=== PATIENT | female | born 1935 | race Caucasian/White ===

== ENCOUNTER 2016-07-24 13:11 | Inpatient (IN) | payer MEDICARE ==
[~2016-07-24] VITALS: Ht 167.6 cm; Wt 62.2 kg
[2016-07-24] VITALS (11 sets, daily range): BP systolic 152–186; BP diastolic 49–83
[~2016-07-24 13:11] MED LIST: AMLO1TAB14 PO; CELE200C PO; LEVO750T26 PO; OXYC-302 PO; POLY17PO5 PO
[2016-07-24] MEDS ORDERED: SODIUM CHLORIDE FLUSH 10ML SYR IVF ONE (14:00)
[2016-07-24] MEDS ORDERED: NICOTINE 14MG/24 HR PATCH.TD24 TD ONE (14:00)
[2016-07-24] MEDS ORDERED: VALS320T2 PO (14:12)
[2016-07-24] MEDS ORDERED: AMLO2.5T PO (14:12)
[2016-07-24] MEDS ORDERED: OMEP20TA62 PO (14:12)
[2016-07-24 14:19] LABS: ASPARTATE AMINO TRANSFERASE 13 U/L (15-37); BLOOD UREA NITROGEN 16 mg/dL (7-18); HEMOGLOBIN 5.8 g/dL (11.7-16.4)
[2016-07-24 14:47] LABS: DIFF TOTAL CELLS COUNTED 100 CELL DIFF
[2016-07-24 14:51] LABS: ANISOCYTOSIS 2+; HYPOCHROMIA 2+; VERIFY COUNTS? YES
[2016-07-24 14:52] LABS: LARGE PLATELETS 1+; POLYCHROMASIA 1+; TARGET CELLS 1+
[2016-07-24] MEDS ORDERED: NICOTINE 14MG/24 HR PATCH.TD24 ONE (15:05)
[2016-07-24] MEDS ORDERED: ACETAMINOPHEN 325 MG TABLET PO PRN (15:30)
[2016-07-24 15:38] LABS: TOTAL IRON BINDING CAPACITY 337 mcg/dL (250-450)
[2016-07-24] MEDS ORDERED: LABETALOL 5MG/ML, 20ML IVPush ONE (22:00)
[2016-07-24 22:26] LABS: PATH.CAST-FLAG NOT PRESENT; SPERM-FLAG NOT PRESENT; SRC-FLAG NOT PRESENT; XTAL-FLAG NOT PRESENT; YLC-FLAG NOT PRESENT
[2016-07-25 02:05] VITALS: BP 173/78
[2016-07-25 05:38] LABS: HEMOGLOBIN 9.9 g/dL (11.7-16.4)
[2016-07-25 05:49] LABS: ASPARTATE AMINO TRANSFERASE 19 U/L (15-37); BLOOD UREA NITROGEN 15 mg/dL (7-18)
[2016-07-25 06:29] LABS: ANISOCYTOSIS 2+; HYPOCHROMIA 1+; MICROCYTOSIS 1+; TARGET CELLS 1+
[2016-07-25] MEDS ORDERED: PANTOPROZOLE 40MG TABLET PO SCH (07:30)
[2016-07-25 07:39] VITALS: BP 172/72
[2016-07-25] MEDS ORDERED: ENALAPRILAT 1.25 MG/ML, 2ML IV PRN (09:00)
[2016-07-25] MEDS ORDERED: ASCORBIC ACID 500 MG TABLET PO SCH (09:00)
[2016-07-25] MEDS ORDERED: VALSARTAN 320 MG TABLET PO SCH (09:00)
[2016-07-25] MEDS ORDERED: AMLODIPINE 2.5 MG TABLET PO ONE (09:00)
[2016-07-25] MEDS ORDERED: AMLODIPINE 2.5 MG TABLET PO SCH (09:00)
[2016-07-25] MEDS ORDERED: AMLO2.5T PO ×2 (09:55→12:16)
[2016-07-25] MEDS ORDERED: FERR325T20 PO (09:55)
[2016-07-25] MEDS ORDERED: ASCO500T6 PO (09:55)
[2016-07-25] MEDS: FERROUS SULFATE 325 MG TABLET PO SCH ×2 (10:50→12:52)
[2016-07-25 13:43] LABS: OCCBLD OBC PASS
[2016-07-25 14:34] VITALS: BP 162/72
[2016-07-26] MEDS ORDERED: AMLODIPINE 2.5 MG TABLET PO SCH (09:00)
== END 2016-07-25 16:08 | disposition home or self-care (01) | DRG 812 ==
LOC: ED 14:05 → EDIP 14:32 → 3NE 15:26 → DCLOUNGE 07-25 15:38
PROC: 30233N1 Transfusion of Nonautologous Red Blood Cells into Peripheral Vein, Percutaneous Approach (ICD-10-PCS; principal; 2016-07-24)
PROC: 0T9B70Z Drainage of Bladder with Drainage Device, Via Natural or Artificial Opening (ICD-10-PCS; 2016-07-24)
DX: D62 Acute posthemorrhagic anemia (principal); J96.10 Chronic respiratory failure, unspecified whether with hypoxia or hypercapnia; D50.9 Iron deficiency anemia, unspecified; F17.210 Nicotine dependence, cigarettes, uncomplicated; I10 Essential (primary) hypertension; J44.9 Chronic obstructive pulmonary disease, unspecified; K21.9 Gastro-esophageal reflux disease without esophagitis; Z80.1 Family history of malignant neoplasm of trachea, bronchus and lung; Z85.038 Personal history of other malignant neoplasm of large intestine; Z99.81 Dependence on supplemental oxygen; Z90.49 Acquired absence of other specified parts of digestive tract; Z88.8 Allergy status to other drugs, medicaments and biological substances
CPT/HCPCS: 36415; 80053; 81001; 82272; 82607; 82746; 83540; 83550; 85025; 85045; 85610; 86850; 86900; 86923; 93005; 99285; P9016

== ENCOUNTER 2017-03-08 13:10 | Inpatient (IN) | payer MEDICARE ==
[~2017-03-08] VITALS: Ht 167.6 cm; Wt 50.5 kg
[~2017-03-08 13:10] MED LIST changes: +AMLO2.5T PO; +ASCO500T6 PO; +CEFD300C37 PO; +DOXY100T PO; +FERR325T18 PO; +OMEP20TA62 PO; +VALS320T2 PO
[2017-03-08] MEDS ORDERED: SODIUM CHLORIDE 0.9% 1,000 ML IV ONE ×2 (13:16→16:30)
[2017-03-08] MEDS ORDERED: PLEASE ENTER HEIGHT AND WEIGHT MC SCH (13:30)
[2017-03-08] MEDS ORDERED: SODIUM CHLORIDE 0.9% 1,000ML IVBOLUS ONE ×2 (13:30→16:30)
[2017-03-08] MEDS ORDERED: SODIUM CHLORIDE FLUSH 10ML SYR IVF ONE (13:30)
[2017-03-08 13:42] LABS: HEMATOCRIT 35.1 % (34.6-47.8); HEMOGLOBIN 11.3 g/dL (11.7-16.4)
[2017-03-08 13:54] LABS: ASPARTATE AMINO TRANSFERASE 12 U/L (15-37); BLOOD UREA NITROGEN 19 mg/dL (7-18)
[2017-03-08 13:59] LABS: IS PT STATUS REG ER OR PRE ER? YES
[2017-03-08 14:24] LABS: DIFF TOTAL CELLS COUNTED 100 CELL DIFF
[2017-03-08 14:29] LABS: ANISOCYTOSIS 1+; VERIFY COUNTS? YES
[2017-03-08] MEDS ORDERED: METRONIDAZOLE PMX 500MG/100ML 100 ML ONE (16:15)
[2017-03-08] MEDS ORDERED: METRONIDAZOLE PMX 500MG/100ML 100 ML IV ONE (16:30)
[2017-03-08] MEDS ORDERED: NS + 20MEQ KCL 1,000 ML IV SCH (17:05)
[2017-03-08] MEDS ORDERED: ACETAMINOPHEN 325 MG TABLET PO PRN (17:30)
[2017-03-08] MEDS ORDERED: POLYETHYLENE GLYCOL 17 GM PACKET PO PRN (17:30)
[2017-03-08] MEDS ORDERED: DOCUSATE 100 MG CAPSULE PO PRN (17:30)
[2017-03-08] MEDS ORDERED: morphine SULFATE 10 MG/ML, 1ML IVPush PRN (17:30)
[2017-03-08] MEDS ORDERED: BISACODYL 10 MG SUPP PR PRN (17:30)
[2017-03-08] MEDS ORDERED: ONDANSETRON 2MG/ML, 2ML IVPush PRN (17:30)
[2017-03-08] MEDS ORDERED: HYDROcodone/APAP 5/325 TABLET PO PRN (17:30)
[2017-03-08] MEDS ORDERED: LABETALOL 5MG/ML, 20ML IVPush PRN (17:30)
[2017-03-08 20:17] VITALS: BP 125/62
[2017-03-08] MEDS: GUAIFENESIN ER 600 MG TABLET PO SCH (23:42)
[2017-03-08] MEDS: metroNIDAZOLE 500 MG TABLET PO SCH (23:42)
[2017-03-09 01:12] VITALS: BP 111/61
[2017-03-09 05:36] LABS: HEMATOCRIT 32.6 % (34.6-47.8); HEMOGLOBIN 10.5 g/dL (11.7-16.4); WHITE BLOOD COUNT 24.1 x10^3/uL (3.4-10)
[2017-03-09 05:47] LABS: BLOOD UREA NITROGEN 19 mg/dL (7-18)
[2017-03-09 06:12] LABS: DIFF TOTAL CELLS COUNTED 100 CELL DIFF
[2017-03-09 06:14] LABS: VERIFY COUNTS? YES
[2017-03-09 06:15] LABS: ANISOCYTOSIS 1+
[2017-03-09] MEDS ORDERED: DOXYCYCLINE 100 MG in DEXTROSE 5% 250 ML IV SCH (07:30)
[2017-03-09] MEDS: CEFTRIAXONE PMX 1GM/50ML 50 ML IV SCH (08:44)
[2017-03-09] MEDS: metroNIDAZOLE 500 MG TABLET PO SCH ×2 (08:45→16:28)
[2017-03-09] MEDS: FERROUS SULFATE 325 MG TABLET PO SCH ×3 (08:45→16:28)
[2017-03-09] MEDS: ENOXAPARIN 40 MG/0.4 ML SQ SCH (08:45)
[2017-03-09] MEDS: AMLODIPINE 2.5 MG TABLET PO SCH (08:46)
[2017-03-09] MEDS: VALSARTAN 320 MG TABLET PO SCH (08:46)
[2017-03-09] MEDS: GUAIFENESIN ER 600 MG TABLET PO SCH ×2 (08:46→21:08)
[2017-03-09] MEDS: ASCORBIC ACID 500 MG TABLET PO SCH (08:46)
[2017-03-09 08:57] VITALS: BP 124/69
[2017-03-09 16:06] VITALS: BP 155/64
[2017-03-09] MEDS: DOXYCYCLINE 100MG TABLET PO SCH (21:08)
[2017-03-10] MEDS: metroNIDAZOLE 500 MG TABLET PO SCH ×3 (00:25→16:29)
[2017-03-10 06:11] LABS: HEMOGLOBIN 10.5 g/dL (11.7-16.4); WHITE BLOOD COUNT 23.8 x10^3/uL (3.4-10)
[2017-03-10 06:23] LABS: BLOOD UREA NITROGEN 18 mg/dL (7-18)
[2017-03-10 07:15] VITALS: BP 145/51
[2017-03-10] MEDS: SODIUM CHLORIDE 0.9% 1,000 ML IV SCH ×2 (07:55→21:18)
[2017-03-10] MEDS: CEFTRIAXONE PMX 1GM/50ML 50 ML IV SCH (07:56)
[2017-03-10] MEDS: FERROUS SULFATE 325 MG TABLET PO SCH ×3 (08:01→16:29)
[2017-03-10] MEDS: ENOXAPARIN 40 MG/0.4 ML SQ SCH (08:01)
[2017-03-10] MEDS: DOXYCYCLINE 100MG TABLET PO SCH ×2 (09:02→21:18)
[2017-03-10] MEDS: GUAIFENESIN ER 600 MG TABLET PO SCH ×2 (09:02→21:18)
[2017-03-10] MEDS: ASCORBIC ACID 500 MG TABLET PO SCH (09:02)
[2017-03-10] MEDS: AMLODIPINE 2.5 MG TABLET PO SCH (09:03)
[2017-03-10] MEDS: VALSARTAN 320 MG TABLET PO SCH (09:03)
[2017-03-10 13:48] VITALS: BP 93/55
[2017-03-10 19:17] VITALS: BP 108/57
[2017-03-10] MEDS ORDERED: LABETALOL 5MG/ML, 20ML IVPush PRN (21:00)
[2017-03-10] MEDS ORDERED: ACETAMINOPHEN 325 MG TABLET PO PRN (21:00)
[2017-03-10] MEDS ORDERED: DOCUSATE 100 MG CAPSULE PO PRN (21:00)
[2017-03-10] MEDS ORDERED: HYDROcodone/APAP 5/325 TABLET PO PRN (21:00)
[2017-03-10] MEDS ORDERED: POLYETHYLENE GLYCOL 17 GM PACKET PO PRN (21:00)
[2017-03-10] MEDS ORDERED: BISACODYL 10 MG SUPP PR PRN (21:00)
[2017-03-10] MEDS ORDERED: ONDANSETRON 2MG/ML, 2ML IVPush PRN (21:00)
[2017-03-11] MEDS: metroNIDAZOLE 500 MG TABLET PO SCH ×3 (01:13→17:52)
[2017-03-11 01:31] VITALS: BP 117/67
[2017-03-11 04:37] LABS: HEMATOCRIT 33.4 % (34.6-47.8); HEMOGLOBIN 10.7 g/dL (11.7-16.4); WHITE BLOOD COUNT 19.8 x10^3/uL (3.4-10)
[2017-03-11 04:47] LABS: BLOOD UREA NITROGEN 17 mg/dL (7-18)
[2017-03-11 07:00] VITALS: BP 116/63
[2017-03-11] MEDS: ENOXAPARIN 40 MG/0.4 ML SQ SCH (09:08)
[2017-03-11] MEDS: VALSARTAN 320 MG TABLET PO SCH (09:09)
[2017-03-11] MEDS: FERROUS SULFATE 325 MG TABLET PO SCH ×3 (09:09→17:52)
[2017-03-11] MEDS: DOXYCYCLINE 100MG TABLET PO SCH ×2 (09:09→20:51)
[2017-03-11] MEDS: GUAIFENESIN ER 600 MG TABLET PO SCH ×2 (09:09→20:51)
[2017-03-11] MEDS: ASCORBIC ACID 500 MG TABLET PO SCH (09:09)
[2017-03-11] MEDS: AMLODIPINE 2.5 MG TABLET PO SCH (09:10)
[2017-03-11] MEDS: CEFTRIAXONE PMX 1GM/50ML 50 ML IV SCH (11:01)
[2017-03-11] MEDS ORDERED: DOXY100T PO (12:16)
[2017-03-11] MEDS ORDERED: METR500T PO (12:16)
[2017-03-11] MEDS ORDERED: CEFT1FRO2 IV (12:16)
[2017-03-11 13:15] VITALS: BP 109/60
[2017-03-11 19:20] VITALS: BP 118/68
[2017-03-12 00:50] VITALS: BP 112/68
[2017-03-12] MEDS: metroNIDAZOLE 500 MG TABLET PO SCH ×2 (02:34→08:39)
[2017-03-12 05:38] LABS: HEMATOCRIT 33.8 % (34.6-47.8); HEMOGLOBIN 10.8 g/dL (11.7-16.4); WHITE BLOOD COUNT 18.6 x10^3/uL (3.4-10)
[2017-03-12 05:49] LABS: BLOOD UREA NITROGEN 16 mg/dL (7-18)
[2017-03-12 06:07] LABS: DIFF TOTAL CELLS COUNTED 100 CELL DIFF
[2017-03-12 06:11] LABS: ANISOCYTOSIS 1+; VERIFY COUNTS? YES
[2017-03-12 07:19] VITALS: BP 112/56
[2017-03-12] MEDS: FERROUS SULFATE 325 MG TABLET PO SCH ×2 (08:39→11:30)
[2017-03-12] MEDS: VALSARTAN 320 MG TABLET PO SCH (08:39)
[2017-03-12] MEDS: DOXYCYCLINE 100MG TABLET PO SCH (08:39)
[2017-03-12] MEDS: ASCORBIC ACID 500 MG TABLET PO SCH (08:39)
[2017-03-12] MEDS: AMLODIPINE 2.5 MG TABLET PO SCH (08:39)
[2017-03-12] MEDS: GUAIFENESIN ER 600 MG TABLET PO SCH (08:39)
[2017-03-12] MEDS: ENOXAPARIN 40 MG/0.4 ML SQ SCH (08:40)
[2017-03-12] MEDS: CEFTRIAXONE PMX 1GM/50ML 50 ML IV SCH (11:30)
[2017-03-12 13:37] VITALS: BP 120/63
== END 2017-03-12 17:01 | DRG 871 ==
LOC: ED 13:28 → EDIP 16:26 → 3NE 17:36
PROVIDERS: ADMIT Hospitalist; ATTEND Hospitalist
PROC: 0T9B70Z Drainage of Bladder with Drainage Device, Via Natural or Artificial Opening (ICD-10-PCS; principal; 2017-03-08)
DX: A41.9 Sepsis, unspecified organism (principal); E43 Unspecified severe protein-calorie malnutrition; J96.21 Acute and chronic respiratory failure with hypoxia; A04.72 Enterocolitis due to Clostridium difficile, not specified as recurrent; J96.10 Chronic respiratory failure, unspecified whether with hypoxia or hypercapnia; E44.0 Moderate protein-calorie malnutrition; J44.0 Chronic obstructive pulmonary disease with (acute) lower respiratory infection; D64.9 Anemia, unspecified; Z68.1 Body mass index [BMI] 19.9 or less, adult; J44.1 Chronic obstructive pulmonary disease with (acute) exacerbation; Z88.8 Allergy status to other drugs, medicaments and biological substances; I11.9 Hypertensive heart disease without heart failure; J20.9 Acute bronchitis, unspecified; K21.9 Gastro-esophageal reflux disease without esophagitis; Z85.038 Personal history of other malignant neoplasm of large intestine; Z87.891 Personal history of nicotine dependence; Z87.81 Personal history of (healed) traumatic fracture
CPT/HCPCS: 36415; 71010; 74020; 80048; 80053; 81001; 83605; 84484; 85025; 87040; 87046; 87086; 87324; 87899; 89055; 93005; 96361; 96365; J0696; J1650; J3480; J7060; J7030